=== PATIENT | male | born 1965 | race Two or more races ===

== ENCOUNTER → 2016-04-22 | Emergency (ER) | payer OTHER ==
[~2016-04-22] VITALS: Ht 167.6 cm; Wt 83.9 kg
[~2016-04-22] MED LIST: TYLENOL EXTRA500 MG ORAL
[2016-04-22 16:10] VITALS: BP 140/99
--- NOTE | 2016-04-22 16:37 | Emergency Room Report ---
History of Present Illness General Chief Complaint: Head Injury Source: Patient Present Illness HPI 50-year-old male presents the emergency department complaining of 10/10 pain to the posterior head in addition to dizziness, and mild confusion for several minutes after falling from a ladder that is estimated by pt. to be 6-8ft. tall. pt denies LOC, pt. denies taking blood thinning medications. pt. denies neck or back pain. pt. reports that he hit the back of his head. Patient states initially she was confused and was having trouble walking straight due to dizziness. Denies open wounds or bleeding. he denies past medical history. Denies numbness tingling or loss of sensation or gross motor movements of the extremities, incontinence of bowel or bladder. Denies CP, Palpitations, LOC, AMS , dizziness, Changes in Vision, Sensation, paresthesias, or a sudden severe headache. Allergies: Coded Allergies: No Known Allergies (Unverified , 04/22/16) Patient History Past Medical History: see triage record Past Surgical History: none Pertinent Family History: none Immunizations: UTD Reviewed Nursing Documentation: PMH: Agreed, PSxH: Agreed Nursing Documentation-PMH Past Medical History: No Stated History Review of Systems All Other Systems: negative except mentioned in HPI Physical Exam Vital Signs Date Time Temp Pulse Resp B/P Pulse Ox O2 Delivery O2 Flow Rate FiO2 04/22/16 15:49 98.2 99 16 140/99 97 Room Air Sp02 EP Interpretation: reviewed, normal General Appearance: no apparent distress, alert, GCS 15, non-toxic Head: normocephalic, other - contusion to the posterior/occipital region of the scalp with mild TTP, no lacerations. Eyes: bilateral eye PERRL, bilateral eye normal inspection ENT: hearing grossly normal, normal pharynx, no angioedema, normal voice, TMs + canals normal, uvula midline, moist mucus membranes, other - no hemotympanum, castellon sign, or evidence of CSF leakage. No septal hematoma noted. Neck: full range of motion, no meningismus, no bony tend, supple/symm/no masses Respiratory: chest non-tender, lungs clear, normal breath sounds, speaking full sentences Cardiovascular #1: regular rate, rhythm, no edema Gastrointestinal: normal bowel sounds, non tender, soft, no guarding, no rebound Rectal: deferred Genitourinary: normal inspection, no CVA tenderness Musculoskeletal: back normal, gait/station normal, normal range of motion, no calf tenderness, tender - mild TTP to posterior scalp, no neck pain, no midline deformity, pt. has FROM without pain of the c-spine. 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 Psychiatric: judgement/insight normal, memory normal, mood/affect normal, no suicidal/homicidal ideation Skin: normal color, no rash, warm/dry, well hydrated, other - contusion to the posterior/occipital region of the scalp with mild TTP, no lacerations. Lymphatic: no adenopathy Medical Decision Making PA Attestation Dr. Christianson is my supervising Physician whom patient management has been discussed with. Diagnostic Impression: Primary Impression: Mild concussion Qualified Codes: S06.0X0A - Concussion without loss of consciousness, initial encounter Additional Impression: Head contusion Qualified Codes: S00.03XA - Contusion of scalp, initial encounter ER Course 50-year-old male presents the emergency department complaining of 10/10 pain to the posterior head in addition to dizziness, and mild confusion for several minutes after falling from a ladder that is estimated by pt. to be 6-8ft. tall. pt denies LOC, pt. denies taking blood thinning medications. pt. denies neck or back pain. pt. reports that he hit the back of his head. Ddx considered but are not limited to Fracture, dislocation, contusion, concussion Sprain/Strain/Spasm, subdural hematoma, ICH Vital signs: are WNL, pt. is afebrile H&PE are most consistent with contusion, no evidence of focal neurological deficit, no loss of consciousness. ORDERS: -CT Head No Contrast: No evidence of acute fracture, hemorrhage, or intracranial process Per official radiology report. ED INTERVENTIONS: -650mg Tylenol PO -D/w Pt discussed red flag symptoms to keep an eye out for that would indicate prompt return to the ED. - Pt. verbalizes his understanding and agreement with proposed treatment plan. DISCHARGE: At this time pt. is stable for d/c to home. Will provide printed patient care instructions, and any necessary prescriptions. Care plan and follow up instructions have been discussed with the patient prior to discharge. Last Vital Signs Date Time Temp Pulse Resp B/P Pulse Ox O2 Delivery O2 Flow Rate FiO2 04/22/16 16:10 98.2 99 16 140/99 97 Room Air Disposition: HOME, SELF-CARE Condition: Stable Scripts Acetaminophen* (TYLENOL EXTRA STRENGTH*) 500 Mg Tablet 500 MG ORAL Q6H, #30 TAB 0 Refills Prov: Lisa Bahena 04/22/16 Departure Forms: Return to Work Return to Work Date: Apr 24, 2016 Work Restrictions: None Return to Full Activity: Apr 24, 2016 Patient Instructions: Concussion, Adult, [id number], Contusion, [id number] Additional Instructions: Take medications as directed. Follow up with PCP in 3-5 days Return sooner to ED if new symptoms occur, or current symptoms become worse. - Please note that this Emergency Department Report was dictated using [employer] tech technology software, occasionally this can lead to erroneous entry secondary to interpretation by the dictation equipment. Lisa Bahena Apr 22, 2016 16:37
[2016-04-22 16:39] VITALS: BP 140/99
--- NOTE | 2016-04-24 09:37 | Diagnostic Imaging Report ---
Indications: Status post fall. Hit head on concrete Technique: Spiral acquisitions obtained through the brain. Angled axial and coronal 5 x 5 mm slices were reconstructed. Total dose length product 1439 mGycm. CTDI vol(s) 7 mGy Comparison: None Findings: There is mild age-related of the extra-axial CSF spaces. No acute intracranial hemorrhage or edema. No mass effect or midline shift. No significant extracranial soft tissue swelling. Normal leggett-white differentiation. There is a left maxillary sinus air-fluid level. There is bilateral ethmoid sinus mucosal disease. Impression: Negative for acute intracranial bleed or mass effect Mild cerebral cortical volume loss, out of proportion to patient's age. Left maxillary sinus air-fluid level, suspicious for acute sinusitis. There is also ethmoid sinus mucosal disease The CT scanner at is accredited by the [employer] and the scans are performed using protocols designed to limit radiation exposure to as low as reasonably achievable to attain images of sufficient resolution adequate for diagnostic evaluation.
== END | disposition home or self-care (01) ==
LOC: EMR 16:23
DX: S06.0X0A Concussion without loss of consciousness, initial encounter (principal); S00.03XA Contusion of scalp, initial encounter; W11.XXXA Fall on and from ladder, initial encounter; Y92.9 Unspecified place or not applicable; Y99.8 Other external cause status
CPT/HCPCS: 70450; 99283